=== PATIENT | male | born 1950 | race Two or more races ===

== ENCOUNTER 2023-08-04 15:39 | Emergency (ER) | payer OTHER ==
[~2023-08-04] VITALS: Ht 160 cm; Wt 106.8 kg
[2023-08-04] MEDS: TraMADol HCL 50 MG TABLET PO ONE (19:13)
[2023-08-04] MEDS: LIDOCAINE 1% 10 ML VIAL SQ ONE (21:39)
[2023-08-04] MEDS: PERTUSS(ACELL),DIPH,TET VAC/PF 0.5 ML SYRINGE IM. ONE (21:40)
[2023-08-04 22:07] VITALS: BP 132/67; PULSE 68; RESP 16; TEMP 98.3
[2023-08-04] MEDS: CEPHALEXIN MONOHYDRATE 500 MG CAPSULE PO ONE (22:07)
== END 2023-08-05 01:21 ==
LOC: EMS 15:46
DX: S51.011A Laceration without foreign body of right elbow, initial encounter (principal); S40.011A Contusion of right shoulder, initial encounter; W19.XXXA Unspecified fall, initial encounter; Y93.89 Activity, other specified; Y92.89 Other specified places as the place of occurrence of the external cause; Y99.8 Other external cause status
CPT/HCPCS: 99284; 73030; 73080; 90715; 90471; 12002; J3490